=== PATIENT | male | born 2005 | race Two or more races ===

== ENCOUNTER 2024-03-16 12:57 | Emergency (ER) | payer MEDICAID, SELFPAY ==
[2024-03-16 13:20] VITALS: BP 134/80; PULSE 69; RESP 16; TEMP 36.9; O2SAT 96; BMI 22.6
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
[2024-03-16] MEDS: DIPHTH,PERTUSS(ACELL),TET VAC 0.5 ML VIAL IMi (13:29)
--- NOTE | 2024-03-16 19:08 | PC.NURSE ---
NO ANSWER AT ER LOBBY OR OUTSIDE ER .
--- NOTE | 2024-03-16 19:10 | PC.NURSE ---
WAS CALLED 3 TIMES ALREADY WITH NO ANSWER.
== END 2024-03-16 19:12 | disposition left against medical advice (07) ==
PROVIDERS: Emergency Provider Emergency Medicine
DX: S09.90XA Unspecified injury of head, initial encounter (principal); S69.92XA Unspecified injury of left wrist, hand and finger(s), initial encounter; S69.91XA Unspecified injury of right wrist, hand and finger(s), initial encounter; S19.9XXA Unspecified injury of neck, initial encounter; S00.83XA Contusion of other part of head, initial encounter; S29.9XXA Unspecified injury of thorax, initial encounter; S39.91XA Unspecified injury of abdomen, initial encounter; V29.99XA Rider (driver) (passenger) of other motorcycle injured in unspecified traffic accident, initial encounter; Z23 Encounter for immunization; Z53.29 Procedure and treatment not carried out because of patient's decision for other reasons
CPT/HCPCS: 70450; 70486; 71250; 72125; 73130; 74176; 90471; 90715; 99281

== ENCOUNTER 2025-02-20 20:03 | Emergency (ER) | payer MEDICAID, SELFPAY ==
[2025-02-20 20:16] VITALS: BP 159/76; PULSE 83; RESP 20; TEMP 36.6; O2SAT 97; BMI 28.5
--- NOTE | 2025-02-20 20:25 | EKG_ITS ---
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
--- NOTE | 2025-02-20 20:25 | XR_ITS ---
EXAMINATION: PA lateral chest 2 views TECHNIQUE: Upright PA lateral chest 2 views Date and time: February 20, 2025, 2047 hours INDICATIONS: Chest pain shortness of breath today. FINDINGS: Normal heart size Lungs are clear Osseous structures are intact IMPRESSION: No active disease
--- NOTE | 2025-02-20 20:25 | EDNOTE_ITS ---
ED Chest Pain RME/HPI General Chief Complaint: Chest Pain Stated Complaint: CHEST PAIN FOR A COUPLE DAY Time Seen by Provider: 02/20/25 20:04 Arrival date/time: 02/20/25 20:03 19-year-old male who denies past medical history but admits to daily marijuana use via vape pen presents today with complaints of pain in the chest x 2 days. Patient states he noticed after taken a few hits from the vape pen he developed the chest pain but they resolved quickly but returned the next day again after using the vape pen. He denies any shortness of breath nausea or vomiting abdominal pain fevers chills cough or congestion. Patient also denies taking any medications for symptoms Limitations: no limitations Related Data Allergies Allergy/AdvReac Type Severity Reaction Status Date / Time No Known Allergies Allergy Verified 02/20/25 20:03 Review of Systems Constitutional Constitutional: Denies chills, Denies fever(s) and Denies headache(s) ENT Ears, Nose, Mouth, and Throat: Denies headache(s), Denies throat swelling, Denies tongue swelling and Denies vertigo Cardiovascular Cardiovascular: Reports chest pain, Denies dyspnea and Denies syncope Respiratory Respiratory: Denies cough and Denies dyspnea Gastrointestinal Gastrointestinal: Denies nausea and Denies vomiting Musculoskeletal Musculoskeletal: Denies back pain and Denies myalgias Integumentary/Breasts Skin/Breast: Denies lesions and Denies rash Neurologic Neurologic: Denies confusion, Denies convulsions, Denies headache(s), Denies syncope and Denies vertigo Psychiatric Psychiatric: Denies anxiety, Denies confusion and Denies depression Hematologic/Lymphatic Hematologic/Lymphatic: Denies easy bleeding and Denies easy bruising Allergic/Immunologic Allergic/Immunologic: Denies throat swelling and Denies tongue swelling Past Medical History Social History SMOKING STATUS: Current some day smoker ED Exam General Limitations: Present no limitations General appearance: Present alert and in no apparent distress Head Head exam: Present atraumatic Eye Eye exam: Present normal appearance, PERRL and EOMI ENT ENT exam: Present normal exam, normal oropharynx and mucous membranes moist Neck Neck exam: Present normal inspection, full ROM and trachea midline Chest Chest inspection: Present normal inspection and symmetric chest wall rise Respiratory Respiratory exam: Present normal lung sounds bilaterally Cardiovascular Cardiovascular exam: Present regular rate, normal rhythm and normal heart sounds Abdominal Exam Abdominal exam: Present soft and normal bowel sounds Extremities Exam Extremities exam: Present normal inspection and full ROM Back Exam Back exam: Present normal inspection and full ROM Neurological Exam Neurological exam: Present alert, oriented X3 and CN II-XII intact Psychiatric Psychiatric exam: Present normal affect and normal mood Skin Skin exam: Present warm, dry, intact and normal color Course Course Course Narrative: A 19-year-old male with no significant medical history, who reports daily marijuana use via vape pen, presents with a 2-day history of chest pain. His EKG shows normal sinus rhythm with no signs of STEMI or ischemia. A chest X-ray is clear, without infiltrates or opacities. His CMP reveals mildly elevated liver enzymes, but otherwise normal findings. The CBC indicates mild thrombocytopenia, and troponin levels are negative. The differential diagnosis includes marijuana use, anxiety, a viral illness, or musculoskeletal pain. The patient appears stable, with no signs of toxicity and stable vital signs. He is referred to his primary care provider for further evaluation of the thrombocytopenia and chest pain. Quality Measures none Orders Category Date Time Status EKG (ED ONLY) *Do not use* NOW Care 02/20/25 20:25 Completed EKG (ED Only) Stat Exams 02/20/25 20:25 Draft XR chest 2V Stat Exams 02/20/25 20:25 Completed CBC Stat Lab 02/20/25 21:09 Completed CMP [Comprehensive Metabolic Panel] Stat Lab 02/20/25 21:09 Completed Troponin I Stat Lab 02/20/25 21:09 Completed Vital Signs Vital signs: Vital Signs Temperature 97.9 F 02/20/25 20:16 Pulse Rate 83 02/20/25 20:16 Respiratory Rate 20 02/20/25 20:16 Blood Pressure 159/76 H 02/20/25 20:16 Pulse Oximetry (%) 97 02/20/25 20:16 Oxygen Delivery Method Room Air 02/20/25 20:16 PROCEDURES: EKG Interpretation #1: EKG Impression: Normal sinus rhythm, No acute ST-T changes and No ischemic changes Chest Pain Patient data External records reviewed:: None Clinical information provided by:: patient Social determinants that could affect healthcare access:: none Patient has the following chronic illnesses:: none How is presenting disease/condition affected by chronic disease/condition?: no chronic disease Evaluation data The following diagnostics were reviewed and interpreted by me:: lab results and radiology exam(s) Lab and/or radiology exams considered but not ordered:: none Interpretation Summary: negative for cardiac events, thrombocytopenia noted Medications / Prescriptions Medications or Prescriptions considered but not ordered:: None Medication administrations:: None Consultations Consultation(s) initiated? (list below): No Diagnosis Most likely diagnosis given after review of the tests above:: Noncardiac chest pain Admission Indicated Admission indicated?: not indicated Admission Request Was there a request for admission?: No Disposition Plan Disposition Plan: Discharge Discharge Attestation Discharge Attestation: The patient and all family members were given an opportunity to ask questions and understood the discharge instructions. Discharge instructions specifically effects, indications for sooner follow up or return to the emergency department, and the expected course of current diagnosis. Patient condition: Stable Discharge Plan Plan Patient Disposition: HOME (Self Care) Prescriptions/Referrals Referrals: No Primary/Family,Physician [Primary Care Provider] - In 1 week Problem List Clinical Impression: Chest pain, Thrombocytopenia Patient/Caregiver Discharge Instructions Discharge Activity: activity as tolerated Education Materials: Thrombocytopenia, ED Chest Pain, Noncardiac Additional Instructions: Follow-up with your primary care provider in 48 hours for reevaluation and return to the emergency department if symptoms should worsen Print Language: Divehi Stand Alone Forms: [facility] Award Info., Patient Portal Info Letter
[2025-02-20 21:42] LABS: Basophils # (Auto) 0.1 Thou/mm3 (0.0-0.2); Basophils % (Auto) 1 % (0-2.5); Eosinophils # (Auto) 0.1 Thou/mm3 (0.0-0.5); Eosinophils % (Auto) 1 % (0-10); Hematocrit 44.8 % (41.0-53.0); Hemoglobin 15.8 g/dL (13.5-16.0); Immature Granulocytes Auto 0.06 Thou/mm3 (0.00-0.00); Lymphocytes # (Auto) 1.4 Thou/mm3 (1.0-4.8); Lymphocytes % (Auto) 13 % (10-50); Mean Corpuscular HGB Conc 35.3 g/dl (31.0-37.0); Mean Corpuscular Hemoglobin 31.9 pg (25.0-35.0); Mean Corpuscular Volume 90 fL (80-100); Monocytes # (Auto) 0.6 Thou/mm3 (0.0-0.8); Monocytes % (Auto) 5 % (0-12); Neutrophils # (Auto) 8.5 Thou/mm3 (1.8-7.7); Neutrophils % (Auto) 79 % (37-80); Nucleated Red Blood Cell # 0.00 Thou/mm3 (0.00-0.00); Nucleated Red Blood Cell % 0 /100 WBC (0); Platelet Count 128 Thou/mm3 (140-440); RDW Standard Deviation 40.4 fL (35.1-43.9); Red Blood Count 4.96 Miln/mm3 (4.50-5.90); White Blood Count 10.7 Thou/mm3 (3.8-10.6)
[2025-02-20 22:04] LABS: Alanine Aminotransferase 27 U/L (10-49); Albumin, Serum 5.0 gm/dL (3.5-5.0); Albumin/Globulin Ratio 1.5 (1.2-2.2); Alkaline Phosphatase 124 U/L (46-116); Anion Gap 11 (7-16); Aspartate Amino Transferase 18 U/L (0-34); BUN/Creatinine Ratio 11 Ratio (12-20); Bilirubin,Total 0.4 mg/dL (0.3-1.2); Blood Urea Nitrogen 10 mg/dL (9-23); Calcium 10.3 mg/dL (8.3-10.6); Calcium (Corrected) 10.3 mg/dL (8.5-10.1); Carbon Dioxide 28.4 mMol/L (20.0-31.0); Chloride 103 mMol/L (98-107); Creatinine (Component) 0.9 mg/dL (0.6-1.3); Estimated Creatinine Clearance 120.7 mL/min (>60); Globulin 3.3 gm/dL (2.3-3.5); Glucose 104 mg/dL (74-106); Osmolality,Calculated 282 (275-295); Potassium 3.9 mMol/L (3.4-5.1); Sodium 142 mMol/L (136-145); Total Protein 8.3 gm/dL (5.7-8.2); Troponin I < 0.002 ng/mL (0.0-0.045); eGFR > 60 See Note
[2025-02-20 22:40] VITALS: BP 138/87; PULSE 80; RESP 17; TEMP 37.1; O2SAT 97
== END 2025-02-20 22:41 | disposition home or self-care (01) ==
PROVIDERS: Physician Assistant; Emergency Provider Emergency Medicine
DX: D69.6 Thrombocytopenia, unspecified (principal); R07.89 Other chest pain; R06.02 Shortness of breath
CPT/HCPCS: 36415; 71046; 80053; 84484; 85025; 93005; 99283

== ENCOUNTER 2025-02-22 00:46 | Emergency (ER) | payer MEDICAID, SELFPAY ==
--- NOTE | 2025-02-22 00:57 | EKG_ITS ---
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
[2025-02-22 01:20] VITALS: BP 135/84; PULSE 79; RESP 16; TEMP 36.8; O2SAT 97
--- NOTE | 2025-02-22 01:50 | EDNOTE_ITS ---
ED Arrhythmia Palp. RME/HPI General Chief Complaint: Arrhythmia/Palpitations Stated Complaint: CHEST AREA PAIN, PALPITATIONS Time Seen by Provider: 02/22/25 01:49 Arrival date/time: 02/22/25 00:46 RME / HPI RME / HPI narrative: See [facility] for Dr. Villalpando's HPI Documentation. Related Data Previous Rx's ?Medication ?Instructions ?Recorded alprazolam 0.5 mg tablet (Xanax) 0.5 mg PO BID PRN anx iety #10 tabs 02/22/25 Allergies Allergy/AdvReac Type Severity Reaction Status Date / Time No Known Allergies Allergy Verified 02/22/25 00:47 Review of Systems Review of Systems Systems Reviewed: All systems reviewed, normal except as documented Past Medical History Social History SMOKING STATUS: Never smoker ED Exam Narrative Physical exam: See [facility] for Dr. Villalpando's Physical Exam Documentation. Course Quality Measures none Orders Category Date Time Status EKG (ED ONLY) *Do not use* NOW Care 02/22/25 00:57 Completed EKG (ED Only) Stat Exams 02/22/25 00:57 Draft ALPRazoLAM [Xanax] Med 02/22/25 01:50 Once 0.5 mg PO X1 ONE Vital Signs Vital signs: Vital Signs Temperature 98.3 F 02/22/25 01:20 Pulse Rate 79 02/22/25 01:20 Respiratory Rate 16 02/22/25 01:20 Blood Pressure 135/84 H 02/22/25 01:20 Pulse Oximetry (%) 97 02/22/25 01:20 Oxygen Delivery Method Room Air 02/22/25 01:20 Arrhythmia/Palpitations [facility] Narrative [facility] Narrative:: This section includes all my notes and documentations, including HPI, PE, and ED course. Brown Villalpando MD HPI: 19 y/o male presents with several days of frequent palpitation episodes. Other symptoms can include intense fear, sweating, chills, shaking, trouble breathing, chest pain, stomach pain, nausea, numbness and tingling in the hands and feet and face, confusion, hot flashes, and feeling faint. Was seen here yesterday. Workup including EKG and blood tests were unremarkable. No other complaints. ROS: All negative except as documented in HPI. Physical Exam: General: Alert and oriented. Appears anxious. Eyes: Conjunctivae and lids clear. ENT: No nasal congestion. Neck: Supple. Heart: RRR. Lungs: No respiratory distress. Good air movement. No rhonchi, wheezing, rales. Abdomen: Soft and nontender. Normal bowel sounds. No distension. No rebound or guarding. Back: No CVA tenderness. Skin: Warm and dry. Neuro: Alert and oriented X 3. I reviewed all diagnostic test results: My interpretation of the EKG is: Sinus rhythm (89 bpm) with nonspecific ST-T changes. At this point, diagnoses include: Panic attacks Treatment here included: Xanax 0.5 mg PO He felt much better. Recommended outpatient cardiac workup. Based on my best medical judgment, made decision no further evaluation or treatment indicated at this time. Patient understands and agrees to the discharge instructions customized and printed, see below. Discharge instructions from Dr. Villalpando: 1. After extensive evaluation, there is no life-threatening condition. Such as heart attack. 2. Your symptoms may be due to underlying stress or anxiety or nerves. This is fairly common. 3. Take Xanax as needed. Whether this helps or not will be valuable information to your private doctors. 4. If you want to make sure your heart is okay, you need to get more tests for your heart that we can't do here in the ER. See a private doctor on 02/24/2025. To make sure there is no serious underlying heart condition, ask to help you get more tests for your heart that cannot be done here in the ER. Such as Holter Monitor (cardiac monitoring at home from a day to even a month), heart stress test (on treadmill or with medication), echocardiogram (imaging of your heart structures), heart catherization (checking for blockages in your heart arteries), and a referral to see a [employer] Clerk. 5. Seek immediate medical care with worsening or with any concerns. Brown Villalpando MD Patient data External records reviewed:: [facility] previous records (Reviewed prior ED records from 02/20/25. Patient was seen for Chest pain.) Clinical information provided by:: patient and parent (Mother) Social determinants that could affect healthcare access:: none Patient has the following chronic illnesses:: None reported How is presenting disease/condition affected by chronic disease/condition?: no chronic disease Evaluation data The following diagnostics were reviewed and interpreted by me:: EKG tracing(s) (My interpretation of the EKG is: Sinus rhythm (89 bpm) with nonspecific ST-T changes. Brown Villalpando MD) Lab and/or radiology exams considered but not ordered:: None Interpretation Summary: My interpretation of the EKG is: Sinus rhythm (89 bpm) with nonspecific ST-T changes. Medications / Prescriptions Medications or Prescriptions considered but not ordered:: None Medication administrations:: Xanax 0.5 mg PO Consultations Consultation(s) initiated? (list below): No Diagnosis Differential diagnosis arrhythmia/palpitations: palpitations, anxiety, artial fibrillation, artial flutter and ventricular premature beats Most likely diagnosis given after review of the tests above:: Panic attacks Admission Indicated Admission indicated?: not indicated Explain why admission is indicated or not indicated:: With significant improvement and no condition needing emergent intervention, there was no indication for admission. Admission Request Was there a request for admission?: No Disposition Plan Disposition Plan: Discharge Discharge Attestation Discharge Attestation: The patient and all family members were given an opportunity to ask questions and understood the discharge instructions. Discharge instructions specifically effects, indications for sooner follow up or return to the emergency department, and the expected course of current diagnosis. Patient condition: Stable Discharge Plan Plan Patient Disposition: HOME (Self Care) Prescriptions/Referrals Prescriptions/Med Rec: New alprazolam [Xanax] 0.5 mg tablet 0.5 mg PO BID PRN (Reason: anxiety) Qty: 10 0RF Problem List Clinical Impression: Palpitations Patient/Caregiver Discharge Instructions Discharge Activity: activity as tolerated Education Materials: ED Anxiety Reaction, ED Palpitations, ED Panic Attack Additional Instructions: Discharge instructions from Dr. Villalpando: 1. After extensive evaluation, there is no life-threatening condition. Such as heart attack. 2. Your symptoms may be due to underlying stress or anxiety or nerves. This is fairly common. 3. Take Xanax as needed. Whether this helps or not will be valuable information to your private doctors. 4. If you want to make sure your heart is okay, you need to get more tests for your heart that we can't do here in the ER. See a private doctor on 02/24/2025. To make sure there is no serious underlying heart condition, ask to help you get more tests for your heart that cannot be done here in the ER. Such as Holter Monitor (cardiac monitoring at home from a day to even a month), heart stress test (on treadmill or with medication), echocardiogram (imaging of your heart structures), heart catherization (checking for blockages in your heart arteries), and a referral to see a [employer] Emergency Clerk. 5. Seek immediate medical care with worsening or with any concerns. Print Language: Estonian Stand Alone Forms: [facility] Award Info., Patient Portal Info Letter
== END 2025-02-22 02:08 | disposition home or self-care (01) ==
LOC: SERX 06:23
PROVIDERS: Emergency Provider Emergency Medicine
DX: F41.0 Panic disorder [episodic paroxysmal anxiety] (principal)
CPT/HCPCS: 93005; 99282; A9270